=== PATIENT | female | born 1990 | race Caucasian/White ===

== ENCOUNTER → 2016-09-01 | Outpatient (REF) | payer OTHER ==
[~2016-09-01] MED LIST: ACET50TA PO; IBUP80TA PO; PRENTAB74 PO
[2016-09-01 16:35] LABS: FREE T4 1.08 NG/DL (0.76-1.46)
== END ==
LOC: M SFHCPLAZ 12:58
PROVIDERS: ATTEND Nurse Practitioner Family
DX: E03.9 Hypothyroidism, unspecified (principal); E55.9 Vitamin D deficiency, unspecified

== ENCOUNTER → 2017-01-07 | Outpatient (CLI) | payer OTHER, SELFPAY ==
--- NOTE | 2017-01-07 18:23 | ECHO ---
DATE OF PROCEDURE: 01/07/2017 AGE: 26 GENDER: Female HEIGHT: 61 inches WEIGHT: 151 pounds BODY SURFACE AREA: 1.68 m2 PATIENT LOCATION: Outpatient. REFERRING PHYSICIAN: Carli Ewing NP INDICATION: Heart murmur. 2D MEASUREMENTS: RV: 3.4 cm LV: 3.6 cm Septum: 0.9 cm Posterior wall: 0.9 cm Aortic root: 2.3 cm LA: 3.5 cm LVEF: 65% DOPPLER MEASUREMENTS: AV: 1.4 m/s LVOT: 0.97 m/s LVOT diameter: 2.0 cm MV-E: 92, A: 59, EA ratio: 1.6 Early mitral deceleration time: 232 ms E prime: 9.6, A prime: 8, E/E prime ratio: 9.6 PV: 1.0 m/s Pulmonary artery acceleration time: 150 ms RVSP: 28 mmHg IVC: 2.0 cm COMMENTS: Normal sinus rhythm without intraventricular conduction disturbance. Normal cardiac chamber sizes and wall thickness. On real time imaging from the parasternal and apical projections wall motion was symmetrical and normal to hyperkinetic. Normal appearing mitral valvular apparatus and leaflet excursion with no posterior systolic buckling. Three equal sized aortic cusps of normal thickness and cusp separation. Normal aortic root size. No apparent intracardiac mass or pericardial effusion. Guided continuous wave Doppler of her aortic valve showed a normal peak systolic velocity against left ventricle (LV) outflow obstruction. Pulsed and continuous wave Doppler of her LV inflow tract taken from the apical four chamber projections showed normal diastolic filling velocities against mitral stenosis. The filling pattern was also normal. Estimated mean left atrial pressure was well within normal limits. Pulses and continuous wave Doppler of her pulmonary trunk showed a normal peak systolic velocity against RV outflow tract obstruction. Her pulmonary artery acceleration time was normal against an elevated pulmonary vascular resistance. Guided continuous wave Doppler of her tricuspid valve allowed our estimation of her right ventricular systolic pressure (within normal limits). Normal inferior vena cava (IVC) size. CONCLUSIONS: Normal appearing echocardiogram/Doppler study. Unable to detect a structural or functional abnormality to account for the patient's murmur. Normal appearing mitral valvular apparatus without mitral valve prolapse and the observed very mild mitral insufficiency is physiologic.
== END ==
LOC: M CARPUL 09:30
PROVIDERS: ATTEND Nurse Practitioner Family
DX: R01.1 Cardiac murmur, unspecified (principal)

== ENCOUNTER → 2017-11-17 | Outpatient (REF) | payer OTHER ==
[2017-11-17 17:20] LABS: HEMATOCRIT 37.2 % (36.0-47.0); HEMOGLOBIN 13.3 g/dl (12.0-15.5); MEAN CORPUSCULAR HEMOGLOBIN 32.3 pg (27.0-33.0); MEAN CORPUSCULAR HGB CONC 35.8 g/dl (32.0-36.5); MEAN CORPUSCULAR VOLUME 90.3 fl (80.0-96.0); PLATELET COUNT, AUTOMATED 256 10^3/uL (150-450); RED BLOOD COUNT 4.12 10^6/uL (4.00-5.40); RED CELL DISTRIBUTION WIDTH 11.6 % (11.5-14.5); WHITE BLOOD COUNT 8.9 10^3/uL (4.0-10.0)
[2017-11-17 18:16] LABS: TOTAL 25(OH) VITAMIN D 42.3 NG/ML (30.0-100.0); VITAMIN B12 LEVEL 428 PG/ML
[2017-11-17 18:17] LABS: FOLATE 17.5 NG/ML
[2017-11-17 18:25] LABS: ALBUMIN 3.9 GM/DL (3.2-5.2); ALBUMIN/GLOBULIN RATIO 1.03 (1.00-1.93); ALKALINE PHOSPHATASE 45 U/L (45-117); ALT/SGPT 31 U/L (12-78); ANION GAP 11 MEQ/L (8-16); AST/SGOT 15 U/L (7-37); BILIRUBIN,TOTAL 0.2 MG/DL (0.2-1.0); BLOOD UREA NITROGEN 16 MG/DL (7-18); CALCIUM LEVEL 8.9 MG/DL (8.5-10.1); CARBON DIOXIDE LEVEL 25 MEQ/L (21-32); CHLORIDE LEVEL 105 MEQ/L (98-107); CREATININE FOR GFR 0.88 MG/DL (0.55-1.30); FREE T4 0.98 NG/DL (0.76-1.46); GLOMERULAR FILTRATION RATE > 60.0 (>60); GLUCOSE, FASTING 96 MG/DL (70-100); POTASSIUM SERUM 3.5 MEQ/L (3.5-5.1); SODIUM LEVEL 141 MEQ/L (136-145); THYROID STIMULATING HORMONE 0.386 uIU/ML (0.358-3.740); TOTAL PROTEIN 7.7 GM/DL (6.4-8.2)
== END ==
LOC: M SFHCPLAZ 16:05
DX: R53.83 Other fatigue (principal); E03.9 Hypothyroidism, unspecified; E55.9 Vitamin D deficiency, unspecified
CPT/HCPCS: 82746

== ENCOUNTER → 2018-01-06 | Outpatient (REF) ==
[2018-01-09 08:06] LABS: QUANTIFERON GOLD TB Negative (Negative); TB Test (QFT) Antigen 0.12 IU/mL (.); TB Test (QFT) Antigen Minus Ni <0.01 IU/mL (.); TB Test (QFT) Mitogen 8.12 IU/mL (.); TB Test (QFT) Nil 0.14 IU/mL (.)
== END ==
LOC: M LAB 10:02
DX: Z00.00 Encounter for general adult medical examination without abnormal findings (principal)

== ENCOUNTER → 2019-11-28 | Outpatient (REF) | payer BC ==
[~2019-11-28] MED LIST changes: -ACET50TA PO; +MAPA500T17 PO
== END ==
LOC: M LAB REF 11:06
PROVIDERS: ATTEND Physician Assistant Medical
DX: N39.0 Urinary tract infection, site not specified (principal)

== ENCOUNTER → 2020-01-09 | Outpatient (REF) | payer BC ==
[2020-01-09 17:07] LABS: APPEARANCE, URINE HAZY (CLEAR); BACTERIA, URINE AUTO NEGATIVE (NEGATIVE); BILIRUBIN, URINE AUTO NEGATIVE (NEGATIVE); BLOOD, URINE BLOOD 3+ (NEGATIVE); COLOR, URINE YELLOW (YELLOW); GLUCOSE, URINE (UA) AUTO NEGATIVE (NEGATIVE); KETONE, URINE AUTO NEGATIVE (NEGATIVE); LEUKOCYTE ESTERASE, URINE AUTO 3+ (NEGATIVE); MUCUS, URINE SMALL (NEGATIVE); NITRITE, URINE AUTO NEGATIVE (NEGATIVE); PROTEIN, URINE AUTO 1+ mg/dL (NEGATIVE); RBC, URINE AUTO 159 /HPF (0-3); SPECIFIC GRAVITY URINE AUTO 1.026 (1.002-1.035); SQUAMOUS EPITHELIAL CELL UR AU 2 /HPF (0-6); UROBILINOGEN, URINE AUTO 0.2 mg/dL (0.0-2.0); WBC, URINE AUTO 135 /HPF (0-3)
== END ==
LOC: M LAB REF 16:25
PROVIDERS: ATTEND Physician Assistant Medical
DX: N39.0 Urinary tract infection, site not specified (principal)

== ENCOUNTER → 2021-05-07 | Outpatient (REF) | LOC: M LABSMTC 10:24 | PROVIDERS: ATTEND Family Medicine | DX: Z11.52 Encounter for screening for COVID-19 (principal); Z20.822 Contact with and (suspected) exposure to COVID-19 ==

== ENCOUNTER → 2021-12-31 | Outpatient (REF) | LOC: M LABSMTC 09:48 | PROVIDERS: ATTEND Family Medicine | DX: Z11.52 Encounter for screening for COVID-19 (principal) ==

== ENCOUNTER → 2022-08-03 | Outpatient (REF) | LOC: M EMP 10:10 | PROVIDERS: ATTEND Family Medicine | DX: Z20.822 Contact with and (suspected) exposure to COVID-19 (principal) ==

== ENCOUNTER → 2024-06-29 | Outpatient (REF) | payer OTHER ==
[2024-06-29 14:41] LABS: ALKALINE PHOSPHATASE 43 U/L (35-104); ALT/SGPT 30 U/L (7.0-40); AST/SGOT 14 U/L (<34); BILIRUBIN,TOTAL 0.4 MG/DL (0.3-1.2); BLOOD UREA NITROGEN 13 MG/DL (9-23); CALCIUM LEVEL 9.4 MG/DL (8.5-10.1); CARBON DIOXIDE LEVEL 24 MMOL/L (20-31); CHLORIDE LEVEL 107 MMOL/L (98-107); CHOLESTEROL LEVEL 146 MG/DL (<200); CHOLESTEROL RISK RATIO 3.02 (<5); CREATININE FOR GFR 0.73 MG/DL (0.55-1.30); GLOMERULAR FILTRATION RATE > 60.0 (>60); GLUCOSE, FASTING 91 MG/DL (60-100); HDL CHOLESTEROL 48.2 MG/DL (>40); LDL CHOLESTEROL 82.2 MG/DL (<100); NON-HDL-C 97.8 MG/DL; POTASSIUM SERUM 4.1 MMOL/L (3.5-5.1); SODIUM LEVEL 140 MMOL/L (136-145); TOTAL PROTEIN 7.6 G/DL (5.7-8.2); TRIGLYCERIDES LEVEL 78 MG/DL (<150)
[2024-06-29 14:42] LABS: THYROID PEROXIDASE ANTIBODY 32 U/ML (<60.0); TOTAL 25(OH) VITAMIN D 21.6 NG/ML (20.0-100.0)
[2024-06-29 14:43] LABS: FREE T4 1.15 NG/DL (0.89-1.76)
[2024-06-29 14:55] LABS: HEMOGLOBIN A1c 5.3 % (4.0-6.0)
[2024-06-29 15:13] LABS: HIV 1&2 SCREEN NEGATIVE (NEGATIVE)
[2024-06-29 15:21] LABS: HEPATITIS C VIRUS ABY INDEX 0.05 INDEX (<0.8)
== END ==
LOC: M LAB REF 12:01
PROVIDERS: ATTEND Physician Assistant
DX: Z11.9 Encounter for screening for infectious and parasitic diseases, unspecified (principal); E66.9 Obesity, unspecified; E55.9 Vitamin D deficiency, unspecified; E03.9 Hypothyroidism, unspecified